=== PATIENT | female | born 1980 | race Hispanic/Latino ===

== ENCOUNTER 2016-12-10 18:21 | Emergency (ER) | payer SELFPAY ==
[2016-12-10 18:27] VITALS: BMI 17.3
--- NOTE | 2016-12-10 19:22 | C.PDOC ---
History Of Present Illness 36 yr old female presents to the ER stating she has been drinking too much alcohol and is requesting detox. Patient was seen by Crisis team memeber and was explained there are no beds available at the moment and was provided with information too be pre-screened. However, patient states she is feeling very depressed. Denies chest pain, SOB, nausea, vomiting, abdominal pain, SI or HI. Time Seen by Provider: 12/10/16 19:21 Chief Complaint (Nursing): Substance Abuse History Per: Patient History/Exam Limitations: no limitations Onset/Duration Of Symptoms: Persistent Current Symptoms Are (Timing): Still Present Suicide/Self Injury Attempted (Context): None Modifying Factor(s): Alcohol Severity: Mild Pain Scale Rating Of: 1 Associated Symptoms: Anger, Depression Involuntary Hold By: None Recent travel outside of the [place]: No Additional History Per: Past Medical History Reviewed: Historical Data, Nursing Documentation, Vital Signs Vital Signs: Last Vital Signs Temp 98.7 F 12/10/16 20:13 Pulse 105 H 12/10/16 20:13 Resp 20 12/10/16 20:13 BP 128/83 12/10/16 20:13 Pulse Ox 97 12/10/16 20:18 Surgical History: Appendectomy Family History: States: No Known Family Hx - Social History Hx Alcohol Use: Yes Hx Substance Use: No - Immunization History Hx Tetanus Toxoid Vaccination: No Hx Influenza Vaccination: No Hx Pneumococcal Vaccination: No Review Of Systems Constitutional: Negative for: Fever, Chills ENT: Negative for: Throat Pain Cardiovascular: Negative for: Chest Pain Respiratory: Negative for: Shortness of Breath Gastrointestinal: Negative for: Nausea, Vomiting, Abdominal Pain Genitourinary: Negative for: Dysuria Musculoskeletal: Negative for: Back Pain Skin: Negative for: Rash Neurological: Negative for: Weakness Psych: Positive for: Depression. Negative for: Suicidal ideation Physical Exam - Physical Exam Appears: Non-toxic, No Acute Distress Skin: Warm, Dry Head: Normacephalic Eye(s): bilateral: Normal Inspection Oral Mucosa: Moist Neck: Supple Chest: Symmetrical, No Tenderness Cardiovascular: Rhythm Regular Respiratory: No Rales, No Rhonchi, No Wheezing Gastrointestinal/Abdominal: Soft, No Distention Back: No CVA Tenderness Extremity: No Tenderness, No Swelling Extremity: Bilateral: Atraumatic Neurological/Psych: Oriented x3, Normal Speech, Normal Cognition Gait: Steady ED Course And Treatment - Laboratory Results Result Diagrams: 12/10/16 20:01 12/10/16 20:01 O2 Sat by Pulse Oximetry: 97 (RA ) Pulse Ox Interpretation: Normal Progress Note: pt was given numbers to call to be pre-screened. Reevaluation Time: 20:38 Reassessment Condition: Improved Medical Decision Making Medical Decision Making: PLAN: * Alcohol Serum * Drug Screen * CBC * CMP * HCG * Urinalysis Disposition Counseled Patient/Family Regarding: Studies Performed, Diagnosis, Need For Followup - Disposition Referrals: Delta Pickard JD, MD [Medical Doctor] - Disposition: HOME/ ROUTINE Disposition Time: 19:22 Condition: FAIR Instructions: Abuse of Alcohol (ED), Alcohol Intoxication (DC) Forms: [employer] (Sami) - Clinical Impression Clinical Impression: Alcohol intoxication - Scribe Statement The provider has reviewed the documentation as recorded by the Scribe Yvonne Lundy Provider Attestation: All medical record entries made by the Scribe were at my direction and personally dictated by me. I have reviewed the chart and agree that the record accurately reflects my personal performance of the history, physical exam, medical decision making, and the department course for this patient. I have also personally directed, reviewed, and agree with the discharge instructions and disposition.
[2016-12-10 20:10] LABS: BASO % 0.5 % (0.0-2.0); EOS % 0.3 % (0.0-4.0); HEMATOCRIT 37.7 % (34.0-47.0); LYMPH # 1.7 K/uL (1.0-4.3); MEAN CELL VOLUME 80.9 fL (81.0-99.0); MEAN CORPUSCULAR HEMOGLOBIN 26.8 pg (27.0-31.0); MEAN CORPUSCULAR HGB CONC 33.1 g/dL (33.0-37.0); MONO # 0.3 K/uL (0.0-0.8); MONO % 4.5 % (0.0-10.0); RED CELL DISTRIBUTION WIDTH 20.7 % (11.5-14.5); WHITE BLOOD COUNT 7.3 K/uL (4.8-10.8)
[2016-12-10 20:14] VITALS: BP 128/83; PULSE 105; RESP 20; TEMP 98.7
[2016-12-10 20:15] LABS: CHLORIDE 102 mmol/L (98-107)
[2016-12-10 20:16] LABS: POTASSIUM 3.9 mmol/L (3.6-5.2); SODIUM 144 mmol/L (132-148)
[2016-12-10 20:18] VITALS: O2SAT 97
[2016-12-10 20:18] LABS: ALB/GLOB RATIO 1.5 (1.0-2.1); ALKALINE PHOSPHATASE 63 U/L (38-126); AST/SGOT 40 U/L (14-36); BILIRUBIN,TOTAL 0.7 mg/dL (0.2-1.3); BLOOD UREA NITROGEN 7 mg/dL (7-17); CARBON DIOXIDE 23 mmol/L (22-30); GFR AFRICAN-AMERICAN > 60; TOTAL PROTEIN 7.4 g/dL (6.3-8.3)
[2016-12-10 20:19] LABS: ALCOHOL SERUM 279 mg/dl (0-10); ALT/SGPT 38 U/L (9-52); CALCIUM 9.4 mg/dl (8.6-10.4); GLUCOSE,RANDOM 86 mg/dL (65-105)
[2016-12-10 20:30] LABS: URINE BILIRUBIN NEGATIVE (NEGATIVE); URINE BLOOD NEGATIVE (NEGATIVE); URINE COLOR Colorless (YELLOW); URINE GLUCOSE (UA) NORMAL (Normal); URINE KETONE NEGATIVE (NEGATIVE); URINE LEUKOCYTE ESTERASE NEG Leu/uL (Negative); URINE PROTEIN NEGATIVE (NEGATIVE); URINE UROBILINOGEN NORMAL mg/dL (0.2-1.0)
== END 2016-12-10 20:48 | disposition home or self-care (01) ==
LOC: C.ER 18:21
DX: F10.120 Alcohol abuse with intoxication, uncomplicated (principal); Y90.8 Blood alcohol level of 240 mg/100 ml or more
CPT/HCPCS: 80053; 81001; 84703; 85025; 99284; G0480

== ENCOUNTER 2017-01-12 18:42 | Emergency (ER) | payer SELFPAY ==
[2017-01-12 18:42] VITALS: BMI 17.3
[2017-01-12 18:58] VITALS: BP 104/73; PULSE 105; RESP 18; TEMP 98.2; O2SAT 100
--- NOTE | 2017-01-12 19:44 | C.PDOC ---
History Of Present Illness 36 yr old female with history of chronic neck pain for the past 10 years, presents to the ER today with complaints of moderate neck pain for the past 2 days. Patient reports of old cervical spine injury 10 years ago and states the pain is usually manageable. Patient states the pain is made worse with movement and experiencing a headache with neck movements. Patient denies recent trauma, fever, chills, vision changes, nausea, vomiting, weakness or numbness. Time Seen by Provider: 01/12/17 19:20 Chief Complaint (Nursing): Back Pain History Per: Patient History/Exam Limitations: no limitations Onset/Duration Of Symptoms: Days Severity: Moderate Previous Symptoms: Neck Pain, Chronic Pain, Prior Injury Associated Symptoms: None Exacerbating Factor(s): Movement Past Medical History Reviewed: Historical Data, Nursing Documentation, Vital Signs Vital Signs: Last Vital Signs Temp 98.2 F 01/12/17 18:54 Pulse 105 H 01/12/17 18:54 Resp 18 01/12/17 18:54 BP 104/73 01/12/17 18:54 Pulse Ox 100 01/12/17 21:55 - Medical History PMH: Chronic Pain (neck) Surgical History: Appendectomy Family History: States: No Known Family Hx - Social History Hx Alcohol Use: Yes Hx Substance Use: No - Immunization History Hx Tetanus Toxoid Vaccination: No Hx Influenza Vaccination: No Hx Pneumococcal Vaccination: No Review Of Systems Constitutional: Negative for: Fever Eyes: Negative for: Vision Change Gastrointestinal: Negative for: Nausea, Vomiting Musculoskeletal: Positive for: Neck Pain Neurological: Negative for: Weakness, Numbness Physical Exam - Physical Exam Appears: Non-toxic, No Acute Distress Skin: Warm, Dry Head: Atraumatic, Normacephalic Eye(s): bilateral: Normal Inspection, PERRL, EOMI Oral Mucosa: Moist Neck: No Midline Cervical Tenderness, Paracervical Tenderness (Bilateral ), Other ((+) Lateral movement of neck causes pain.) Extremity: Normal ROM, No Swelling Extremity: Bilateral: Atraumatic Neurological/Psych: Oriented x3, Normal Speech, Normal Motor, Normal Sensation Gait: Steady ED Course And Treatment O2 Sat by Pulse Oximetry: 100 (RA) Pulse Ox Interpretation: Normal Medical Decision Making Medical Decision Making: PLAN: * Flexeril PO * Toradol IM Pt relative at bedside requesting an MRI in ED today. Pt was informed that no MRI could be done in ER today. Pt is neuro intact and was advised to follwo up with Dr Pickard for evaluation and referral for MRI as needed. Pt will be d/c on pain meds and to follow up with PMD. Return precautions were explained and understood by pt.Pt is fully ambulatory at discharge. 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 - Scribe Statement The provider has reviewed the documentation as recorded by the Scribmaryellen Lundy All medical record entries made by the Stanislavibmaryellen were at my direction and personally dictated by me. I have reviewed the chart and agree that the record accurately reflects my personal performance of the history, physical exam, medical decision making, and the department course for this patient. I have also personally directed, reviewed, and agree with the discharge instructions and disposition.
== END 2017-01-12 20:14 | disposition home or self-care (01) ==
LOC: C.ER 18:42
DX: M54.2 Cervicalgia (principal)
CPT/HCPCS: 96372; 99283; J1885

== ENCOUNTER 2017-07-15 17:53 | Emergency (ER) | payer BC ==
[2017-07-15 17:54] VITALS: BMI 17.3
[2017-07-15 18:03] VITALS: BP 129/87; PULSE 96; RESP 16; TEMP 97.9; O2SAT 99
--- NOTE | 2017-07-15 18:22 | C.PDOC ---
History Of Present Illness 37 year old female presents to the ED with requesting alcohol detox. 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 Patient states she has been drinking because she is increasingly anxious. She denies suicidal/homicidal ideation and has no other complaints at this time. Time Seen by Provider: 07/15/17 18:08 Chief Complaint (Nursing): Substance Abuse History Per: Patient History/Exam Limitations: no limitations Onset/Duration Of Symptoms: Hrs Current Symptoms Are (Timing): Still Present Suicide/Self Injury Attempted (Context): None Modifying Factor(s): Alcohol Associated Symptoms: denies: Suicidal Thoughts, Suicidal Plan Involuntary Hold By: None Recent travel outside of the [place]: No Additional History Per: Patient Past Medical History Reviewed: Historical Data, Nursing Documentation, Vital Signs Vital Signs: Last Vital Signs Temp 97.9 F 07/15/17 17:59 Pulse 96 H 07/15/17 17:59 Resp 16 07/15/17 17:59 BP 129/87 07/15/17 17:59 Pulse Ox 99 07/15/17 23:34 - Medical History PMH: Chronic Pain (neck) Surgical History: Appendectomy - Social History Hx Alcohol Use: Yes Hx Substance Use: No - Immunization History Hx Tetanus Toxoid Vaccination: No Hx Influenza Vaccination: No Hx Pneumococcal Vaccination: No Review Of Systems Psych: Positive for: Other (EtOH intoxication ). Negative for: Suicidal ideation Physical Exam - Physical Exam Appears: Non-toxic, No Acute Distress Skin: Normal Color, Warm, Dry Head: Atraumatic, Normacephalic Eye(s): bilateral: Normal Inspection Oral Mucosa: Moist Neck: Supple Chest: Symmetrical, No Deformity, No Tenderness Cardiovascular: Rhythm Regular, No Murmur Respiratory: Normal Breath Sounds, No Rales, No Rhonchi, No Wheezing Extremity: Normal ROM, Capillary Refill (less than 2 seconds ) Neurological/Psych: Oriented x3, Other (flat affect ) Other Neurological Findings: No Other (tremors ) ED Course And Treatment O2 Sat by Pulse Oximetry: 99 (on RA ) Pulse Ox Interpretation: Normal Progress Note: Librium PO administered. Case discussed with fruit harvest worker. Patient is notified about the unavailabulity of detox beds at this time and is placed on a waiting list. Disposition Counseled Patient/Family Regarding: Diagnosis, Need For Followup, Rx Given - Disposition Disposition: HOME/ ROUTINE Disposition Time: 18:30 Condition: STABLE Additional Instructions: USE MEDICATIONS DIRECTED RETURN TO ER IF YOU HAVE ANY CONCERNING SYMPTOMS Prescriptions: chlordiazePOXIDE [Librium] 50 mg PO UPON ADM #20 cap Instructions: Alcohol Abuse and Alcoholism (DC) Forms: [employer] (Qatari) Print Language: TURKISH - Clinical Impression Clinical Impression: Alcohol dependence - Scribe Statement The provider has reviewed the documentation as recorded by the Scribe (Marsha Duong) Provider Attestation: All medical record entries made by the Scribe were at my direction and personally dictated by me. I have reviewed the chart and agree that the record accurately reflects my personal performance of the history, physical exam, medical decision making, and the department course for this patient. I have also personally directed, reviewed, and agree with the discharge instructions and disposition.
== END 2017-07-15 18:41 | disposition home or self-care (01) ==
LOC: C.ER 17:53
DX: F10.20 Alcohol dependence, uncomplicated (principal); Y90.9 Presence of alcohol in blood, level not specified

== ENCOUNTER 2018-08-09 16:17 | Emergency (ER) | payer SELFPAY ==
[2018-08-09 16:18] VITALS: BMI 17.3
[2018-08-09 17:29] VITALS: BP 121/71; PULSE 108; TEMP 98.1; O2SAT 97
--- NOTE | 2018-08-09 17:40 | C.PDOC ---
History Of Present Illness 38 y/o female pt presents to the ER requesting detox for alcohol. Pt reports she consumes 5 beers a day and currently has not been eating for 5-6 days. Pt's last detox was last month. Pt has no other complaints or associated sx at this time. Time Seen by Provider: 08/09/18 17:07 Chief Complaint (Nursing): Substance Abuse History Per: Patient History/Exam Limitations: no limitations Onset/Duration Of Symptoms: Days (x6) Current Symptoms Are (Timing): Still Present Suicide/Self Injury Attempted (Context): None Modifying Factor(s): Alcohol Past Medical History Reviewed: Historical Data, Nursing Documentation, Vital Signs Vital Signs: Last Vital Signs Temp 98.1 F 08/09/18 16:33 Pulse 108 H 08/09/18 16:33 Resp 18 08/09/18 16:33 BP 121/71 08/09/18 16:33 Pulse Ox 97 08/09/18 16:33 - Medical History PMH: Chronic Pain (neck) Surgical History: Appendectomy Family History: States: No Known Family Hx - Social History Hx Alcohol Use: Yes Hx Substance Use: No - Immunization History Hx Tetanus Toxoid Vaccination: No Hx Influenza Vaccination: No Hx Pneumococcal Vaccination: No Review Of Systems Except As Marked, All Systems Reviewed And Found Negative. Constitutional: Positive for: Other (request alcohol detox ) Gastrointestinal: Positive for: Other (decrease in appetite ) Physical Exam - Physical Exam Appears: Non-toxic, No Acute Distress, Other (thin, [place]-appearing woman; calm, co-operative ) Skin: Warm, Dry Head: Normacephalic Eye(s): bilateral: Normal Inspection, PERRL, EOMI Oral Mucosa: Moist, Other (alcohol on breath ) Throat: Normal Neck: Normal ROM, Supple Chest: Symmetrical Cardiovascular: Rhythm Regular Respiratory: Normal Breath Sounds Gastrointestinal/Abdominal: Soft, No Tenderness Back: No CVA Tenderness Neurological/Psych: Oriented x3, Normal Speech, Normal Cognition ED Course And Treatment - Laboratory Results Result Diagrams: 08/09/18 17:45 08/09/18 17:45 Lab Interpretation: Abnormal (etoh 347, ASA/tylenol neg) Urine POC: Negative O2 Sat by Pulse Oximetry: 97 (RA) Pulse Ox Interpretation: Normal Reevaluation Time: 19:02 Reassessment Condition: Improved Medical Decision Making Medical Decision Making: Plans: -- chem labs -- blood work 1810: pt noted eloped Crisis evaluators notified Disposition Doctor Will See Patient In The: Office Counseled Patient/Family Regarding: Studies Performed, Diagnosis - Disposition Disposition: ELOPEMENT - ER ONLY Disposition Time: 19:00 Condition: GOOD Forms: [facility] (Colombian) - Clinical Impression Clinical Impression: Alcohol dependence - Scribe Statement The provider has reviewed the documentation as recorded by the Stanislavibmaryellen Gannon Do Provider Attestation: All medical record entries made by the Maryjane were at my direction and personally dictated by me. I have reviewed the chart and agree that the record accurately reflects my personal performance of the history, physical exam, medical decision making, and the department course for this patient. I have also personally directed, reviewed, and agree with the discharge instructions and disposition.
[2018-08-09 17:50] LABS: BASO # 0.1 K/uL (0.0-0.2); BASO % 0.8 % (0.0-2.0); EOS % 0.2 % (0.0-4.0); HEMOGLOBIN 12.6 g/dL (11.0-16.0); LYMPH # 1.9 K/uL (1.0-4.3); LYMPH % 24.7 % (20.0-40.0); MEAN CELL VOLUME 85.1 fL (81.0-99.0); MEAN PLATELET VOLUME 7.1 fL (7.2-11.7); MONO # 0.3 K/uL (0.0-0.8); MONO % 3.4 % (0.0-10.0); NEUT # 5.6 K/uL (1.8-7.0); NEUT % 70.9 % (50.0-75.0); RBC 4.49 Mil/uL (3.80-5.20); RED CELL DISTRIBUTION WIDTH 23.7 % (11.5-14.5); WHITE BLOOD COUNT 7.9 K/uL (4.8-10.8)
[2018-08-09 17:51] LABS: SQUAMOUS EPITHIAL 2 /hpf (0-5); URINE BACTERIA RARE (<OCC); URINE BILIRUBIN NEGATIVE (NEGATIVE); URINE CLARITY Clear (Clear); URINE COLOR Yellow (YELLOW); URINE GLUCOSE (UA) NORMAL (Normal); URINE LEUKOCYTE ESTERASE NEG Leu/uL (Negative); URINE PROTEIN NEGATIVE (NEGATIVE); URINE UROBILINOGEN NORMAL mg/dL (0.2-1.0)
[2018-08-09 17:52] LABS: HCG,QUALITATIVE URINE NEGATIVE (NEGATIVE)
[2018-08-09 17:53] LABS: URINE BLOOD 1+ (NEGATIVE)
[2018-08-09 18:00] LABS: ACETAMINOPHEN < 10.0 ug/mL (10.0-30.0); SALICYLATE < 1.0 mg/dL 1
[2018-08-09 18:02] LABS: ALB/GLOB RATIO 1.8 (1.0-2.1); ALBUMIN 4.8 g/dL (3.5-5.0); ALT/SGPT 40 U/L (9-52); AST/SGOT 54 U/L (14-36); BLOOD UREA NITROGEN 7 mg/dL (7-17); CALCIUM 9.6 mg/dl (8.6-10.4); GFR NON-AFRICAN AMERICAN > 60
[2018-08-09 18:08] LABS: BARBITURATES, UR NEGATIVE (NEGATIVE); BENZODIAZEPINES, UR NEGATIVE (NEGATIVE); OPIATES, UR NEGATIVE (NEGATIVE); PHENCYCLIDINE, UR NEGATIVE (NEGATIVE)
[2018-08-09 18:59] VITALS: RESP 20
== END 2018-08-09 19:03 | disposition left against medical advice (07) ==
LOC: C.ER 16:17
DX: F10.20 Alcohol dependence, uncomplicated (principal); Y90.8 Blood alcohol level of 240 mg/100 ml or more
CPT/HCPCS: 80053; 81001; 83735; 84100; 84703; 85025; 99283; G0480

== ENCOUNTER 2018-08-11 09:22 | Inpatient (IN) | payer MEDICAID, OTHER ==
[2018-08-11 09:22] VITALS: BMI 17.3
[2018-08-11 10:38] LABS: BASO % 0.7 % (0.0-2.0); EOS % 0.9 % (0.0-4.0); HEMOGLOBIN 12.6 g/dL (11.0-16.0); LYMPH # 1.1 K/uL (1.0-4.3); LYMPH % 20.8 % (20.0-40.0); MEAN CELL VOLUME 86.5 fL (81.0-99.0); MEAN CORPUSCULAR HEMOGLOBIN 28.8 pg (27.0-31.0); MEAN CORPUSCULAR HGB CONC 33.3 g/dL (33.0-37.0); MEAN PLATELET VOLUME 7.5 fL (7.2-11.7); MONO # 0.3 K/uL (0.0-0.8); MONO % 5.2 % (0.0-10.0); NEUT # 3.9 K/uL (1.8-7.0); NEUT % 72.4 % (50.0-75.0); NRBC % 0.1 % (0.0-2.0); RBC 4.36 Mil/uL (3.80-5.20); RED CELL DISTRIBUTION WIDTH 24.5 % (11.5-14.5); WHITE BLOOD COUNT 5.4 K/uL (4.8-10.8)
--- NOTE | 2018-08-11 11:24 | C.PDOC ---
History Of Present Illness 38 y/o female presents to ED requesting detox from alcohol. Patient denies any chest pain, fever, or vomiting. Denies suicidal or homicidal ideation. Time Seen by Provider: 08/11/18 09:36 Chief Complaint (Nursing): Substance Abuse History Per: Patient History/Exam Limitations: no limitations Onset/Duration Of Symptoms: Days Current Symptoms Are (Timing): Still Present Past Medical History Reviewed: Historical Data, Nursing Documentation, Vital Signs Vital Signs: Last Vital Signs Temp 98 F 08/11/18 09:27 Pulse 91 H 08/11/18 09:27 Resp 20 08/11/18 09:27 BP 93/70 L 08/11/18 09:27 Pulse Ox 98 08/11/18 09:27 - Medical History PMH: Chronic Pain (neck) Surgical History: Appendectomy Family History: States: No Known Family Hx - Social History Hx Tobacco Use: No Hx Alcohol Use: Yes Hx Substance Use: No - Immunization History Hx Tetanus Toxoid Vaccination: No Hx Influenza Vaccination: No Hx Pneumococcal Vaccination: No Review Of Systems Except As Marked, All Systems Reviewed And Found Negative. Constitutional: Negative for: Fever Cardiovascular: Negative for: Chest Pain Respiratory: Negative for: Cough, Shortness of Breath Gastrointestinal: Negative for: Nausea, Vomiting, Abdominal Pain Psych: Positive for: Other (alcohol abuse) Physical Exam - Physical Exam Appears: Non-toxic, No Acute Distress Skin: Warm, Dry Head: Atraumatic, Normacephalic Eye(s): bilateral: Normal Inspection Oral Mucosa: Moist Neck: Supple Chest: Symmetrical Cardiovascular: Rhythm Regular, No Murmur Respiratory: Normal Breath Sounds, No Rales, No Rhonchi, No Wheezing Gastrointestinal/Abdominal: Soft, No Tenderness Extremity: Bilateral: Atraumatic, Normal ROM Neurological/Psych: Oriented x3, Normal Speech, Normal Cognition ED Course And Treatment - Laboratory Results Result Diagrams: 08/11/18 10:33 08/11/18 10:33 O2 Sat by Pulse Oximetry: 98 (RA) Pulse Ox Interpretation: Normal Medical Decision Making Medical Decision Making: Plan: --Labs --UA Update: Patient is medically cleared for psych admission. 14:52 Patient is still waiting for bed availability. Was not accepted for admission for this reason. 16:40 Patient is accepted to detox. Disposition Discussed With : Rodolfo Archer Counseled Patient/Family Regarding: Diagnosis - Disposition Disposition: HOSPITALIZED Disposition Time: 16:33 Condition: STABLE Forms: [facility] (Kenyan) - Clinical Impression Clinical Impression: Alcohol dependence - Scribe Statement The provider has reviewed the documentation as recorded by the Stanislavibmaryellen Shannon Provider Attestation: All medical record entries made by the Stanislavibmaryellen were at my direction and per sonally dictated by me. I have reviewed the chart and agree that the record accurately reflects my personal performance of the history, physical exam, medical decision making, and the department course for this patient. I have also personally directed, reviewed, and agree with the discharge instructions and disposition.
[2018-08-11 11:53] LABS: ALB/GLOB RATIO 1.7 (1.0-2.1); ALBUMIN 4.9 g/dL (3.5-5.0); ALT/SGPT 72 U/L (9-52); AST/SGOT 106 U/L (14-36); BLOOD UREA NITROGEN 10 mg/dL (7-17); GFR NON-AFRICAN AMERICAN > 60
[2018-08-11 12:07] LABS: HCG,QUALITATIVE URINE NEGATIVE (NEGATIVE)
[2018-08-11 12:12] LABS: SQUAMOUS EPITHIAL 1 /hpf (0-5)
[2018-08-11 12:19] LABS: URINE BILIRUBIN NEGATIVE (NEGATIVE); URINE CLARITY CLOUDY (Clear); URINE COLOR RED (YELLOW); URINE GLUCOSE (UA) NEGATIVE (Normal)
[2018-08-11 12:20] LABS: BARBITURATES, UR NEGATIVE (NEGATIVE); BENZODIAZEPINES, UR NEGATIVE (NEGATIVE); OPIATES, UR NEGATIVE (NEGATIVE); PHENCYCLIDINE, UR NEGATIVE (NEGATIVE); URINE BLOOD 3+ (NEGATIVE); URINE LEUKOCYTE ESTERASE NEGATIVE Leu/uL (Negative); URINE PROTEIN 2+ mg/dL (NEGATIVE); URINE UROBILINOGEN 0.2 mg/dL (0.2-1.0)
--- NOTE | 2018-08-11 16:53 | PCM.BM ---
<Dash Hernandez - Last Filed: 08/11/18 16:51> Treatment Plan Problems - Problems identified on initial assessmt knowledge deficit: alcohol use Date Initiated: 08/11/18 Time Initiated: 16:52 Assessment reference: NA Status: Active anxiety related to substance use/alcohol Date Initiated: 08/11/18 Time Initiated: 16:53 Assessment reference: NA Status: Active denial Date Initiated: 08/11/18 Time Initiated: 16:53 Assessment reference: NA Status: Active Treatment assets and liabiliti Patient Assests: adapts well, cooperative, cognitively intact Patient Liabilities: substance abuse - Milieu Protocol Maintain good personal hygiene: daily Encourage regular showers, daily Remind patient to perform daily oral care, daily Assist patient to perform ADL's Conduct patient checks and document Observation sheet: Q15 minutes Maintain personal safety: every shift Educate patient to report safety concerns to staff, every shift Monitor environment for contraband/sharps Medication safety: Monitor for expected outcome, potential side effects: every shift, Assess barriers to learning: every shift, Assess readiness for medication education: every shift <Arlet Zhu - Last Filed: 08/12/18 22:54> - Diagnosis (1) Alcohol dependence Status: Acute Interventions: 08/12/18 22:54 * Assess 7x/week regarding severity of withdrawal * Educate regarding risks, benefits, side effects and alternatives of medications * Use Motivational Interviewing for abstinence * Use CBT for relapse prevention * Medication management for withdrawal symptoms * Encourage medication assisted treatment *
[2018-08-11] MEDS ORDERED: Aluminum Hydroxide/Magnesium Hydroxide Susp (30 mL) PO PRN (17:06)
[2018-08-11] MEDS ORDERED: Magnesium Hydroxide Susp 30 ml UD PO PRN (17:06)
[2018-08-12] MEDS: Multiple Vitamins Tab PO SCH (10:05)
--- NOTE | 2018-08-12 12:46 | PCM.PSYCH ---
Initial Psychiatric Evaluation - Initial Psychiatric Evaluation Type of Admission: Voluntary Legal Status: Capacity Chief Complaint (in patient's own words): "I feel sick, tired" History of Present Illness and Precipitating Events: Patient is seen, chart reviewed and plan discussed with team. Patient is a 38 year old woman, currently with an eleven year old daughter. She lives at home with her daughter and . She is unemployed and not on disability. Patient is presenting to detox for alcohol use. She drinks 3 beers and 3 shots of vodka per day. She has been drinking for 6 years, her longest sobriety was 1.5 years. She has been to detox 4 times, but does not recall where. Currently she is experiencing withdrawal symptoms of tremor and fatigue. Patient denied other recreational drug use. She is currently a smoker, 1PPD for the last 20 years. She denied any symptoms when not using drugs. Patient denied suicidal or homicidal ideations. She stated she would like to go back to [facility], to receive injections in the hospital there. Psych Hx Denies Fam Psych HX Denies Medications Denies PMHx Denies Social hx Smoking and alcohol use Trauma Denies Current Medications: Active Medications Generic Name Dose Route Start Last Admin Trade Name Freq PRN Reason Stop Dose Admin Al Hydrox/Mg Hydrox/Simethicone 30 ml 08/11/18 17:06 Maalox 30 Ml PO TID PRN Indigestion / Heartburn Chlordiazepoxide 25 mg 08/12/18 10:00 08/12/18 10:05 Librium PO 08/17/18 09:59 25 mg Q6H JENNI Administration Taper Clonidine HCl 0.1 mg 08/11/18 17:05 Catapres PO Q4H PRN Symptoms of alcohol withdrawl Dicyclomine HCl 10 mg 08/11/18 17:06 Bentyl PO Q6 PRN Muscle spasm Folic Acid 1 mg 08/12/18 10:00 08/12/18 10:06 Folic Acid PO 1 mg DAILY JENNI Administration Gabapentin 400 mg 08/11/18 18:00 08/12/18 10:05 Neurontin PO 400 mg TID JENNI Administration Hydroxyzine HCl 50 mg 08/11/18 17:10 Atarax PO Q6 PRN Anxiety Ibuprofen 600 mg 08/11/18 17:06 Motrin Tab PO Q6 PRN Pain, moderate (4-7) Loperamide HCl 2 mg 04/14/19 17:06 Imodium PO Q8 PRN Diarrhea Magnesium Hydroxide 30 ml 08/11/18 17:06 Milk Of Magnesia PO BID PRN Constipation Multivitamins 1 tab 08/12/18 10:00 08/12/18 10:05 Hexavitamin PO 1 tab DAILY JENNI Administration Nicotine 1 patch 08/12/18 10:00 08/12/18 10:08 Nicoderm Cq TD Not Given DAILY JENNI Ondansetron HCl 4 mg 08/11/18 17:06 Zofran Tab PO Q8 PRN Nausea/Vomiting Pneumococcal Polyvalent Vaccine 0.5 ml 08/14/18 10:00 Pneumovax 23 Vaccine IM 08/14/18 10:01 .ONCE ONE Thiamine HCl 100 mg 08/12/18 10:00 08/12/18 10:05 Vitamin B1 Tab PO 100 mg DAILY JENNI Administration Trazodone HCl 50 mg 08/11/18 17:05 Desyrel PO HS PRN Insomnia Past Psychiatric History - Past Psychiatric History Pertinent Medical Hx (Current Medical&Sleep Prob, Allergies): Allergies Allergy/AdvReac Type Severity Reaction Status Date / Time No Known Allergies Allergy Verified 08/11/18 09:28 chlordiazePOXIDE [Librium] 50 mg PO UPON ADM #20 cap 07/15/17 Review of Systems - Psychiatric Psychiatric: Abnormal Sleep Pattern, Anhedonia, Anxiety, Change in Appetite, Depression, Difficulty Concentrating. absent: Hallucinations, Homicidal Ideation, Paranoia, Suicidal Ideation Mental Status Examination - Personal Presentation Personal Presentation: Looks older than stated age - Affect Affect: Constricted - Motor Activity Motor Activity: Calm - Reliability in Providing Information Reliability in Providing Information: Fair - Speech Speech: Organized - Mood Mood: Depressed, Anxious - Formal Thought Process Formal Thought Process: No Impairment - Cognitive Functions Orientation: Person, Place, Situation, Time Sensorium: Alert Attention/Concentration: Easily distracted Abstract Thinking: [place] Estimate of Intelligence: Average Judgement: Intact, as evidence by: Insight regarding need for hospitalization Memory: Recent intact, as evidence by: Ability to recall events of the day, Remote intact, as evidenced by: Abilit to recall sig. life events - Risk Risk: Withdrawal, Diminished functioning - Strength & Assets Inventory Strength & Assets Inventory: Family support, Cooperative - Limitations Limitations: Other DSM 5 DX - DSM 5 DSM 5 Diagnosis: Alcohol withdrawal Alcohol use d/o - severe Major depressive d/o - moderate - Recommended/Plan of Treatment Treatment Recommendations and Plan of Treatment: Taper with librium Gabapentin for augmentation if needed As needed medications All risks, benefits and alternatives of the meds discussed, and the pt agreed and understood. Attend groups and activities Supportive therapy and psychoeducation [place] for abstinence CBT for relapse prevention Encourage MAT Refer to rehab or IOP, and self-help groups Teach healthy lifestyle methods, i.e. diet, exercise, meditation Smoking cessation with [place] Nicotine patch if needed 34 min Projected ELOS: 4-5 days Prognosis: good w treatment - Smoking Cessation Smoking Cessation Initiated: Yes
[2018-08-13] MEDS: Multiple Vitamins Tab PO SCH (10:09)
[2018-08-14] MEDS ORDERED: Pneumococcal 23-Valent Vaccine IM ONE (10:00)
[2018-08-14] MEDS: Multiple Vitamins Tab PO SCH (10:47)
--- NOTE | 2018-08-14 15:52 | PCM.PYCHPN ---
Psychiatric Progress Note - Psychiatric Progress Note Patient seen today, length of contact: 16 min Patient Chief Complaint: "I am not well" Problems Identified/Issues Discussed: The pt is seen, chart reviewed, case discussed with staff. The pt is compliant with medications and reports no side-effects. Symptoms are improving but needs more time to stabilize. Pt attends groups and activities. Support given, psycho-education provided. After care discussed. Medication Change: Yes (detox changes daily) Medical Record Reviewed: Yes Mental Status Examination - Cognitive Function Orientation: Person, Place, Situation, Time Memory: Intact Attention: Poor Concentration: Poor Association: WNL Fund of Knowledge: WNL - Mood Mood: Depressed, Anxious - Affect Affect: Constricted - Speech Speech: Appropriate - Formal Thought Process Formal Thought Process: No Impairment - Suicidal Ideation Suicidal Ideation: No - Homicidal Ideation Homicidal Ideation: No Goal/Treatment Plan - Goal/Treatment Plan Need for Continued Stay: Discharge may exacerbated symptoms, Severe functional impairment Progress Toward Problem(s) and Goals/Treatment Plan: Taper with librium Gabapentin for augmentation if needed As needed medications All risks, benefits and alternatives of the meds discussed, and the pt agreed and understood. Attend groups and activities Supportive therapy and psychoeducation MN for abstinence CBT for relapse prevention Encourage MAT Refer to rehab or IOP, and self-help groups Teach healthy lifestyle methods, i.e. diet, exercise, meditation Smoking cessation with MN Nicotine patch if needed Estimated Date of D/C: 08/15/18
[2018-08-15 06:11] VITALS: RESP 19; O2SAT 100
--- NOTE | 2018-08-15 08:53 | PCM.PYCHDC ---
Mental Status Examination - Mental Status Examination Orientation: Person, Place, Situation, Time Memory: Intact Mood: Depressed Affect: Constricted Speech: Appropriate Attention: WNL Concentration: WNL Association: WNL Fund of Knowledge: WNL Formal Thought Process: No Impairment Suicidal Ideation: No Current Homicidal Ideation?: No Discharge Summary - Discharge Note Reason for Hospitalization: Alcohol detox Consultations:: List each consultation separately and include: 1. Reason for request. 2. Findings. 3. Follow-up Summary of Hospital Course include:: 1. Description of specific treatment plan utilized for patients during their course of treatmen. 2. Summarize the time- course for resolution of acute symptoms and/or regressed behaviors. 3. Describe issues identified and worked on during hospitalization. 4. Describe medication utilized. 5. Describe medical problems identified and treated. 6. Reassessment of suicide risk Summary of Hospital Course: On admission: Patient is seen, chart reviewed and plan discussed with team. Patient is a 38 year old woman, currently with an eleven year old daughter. She lives at home with her daughter and . She is unemployed and not on disability. Patient is presenting to detox for alcohol use. She drinks 3 beers and 3 shots of vodka per day. She has been drinking for 6 years, her longest sobriety was 1.5 years. She has been to detox 4 times, but does not recall where. Currently she is experiencing withdrawal symptoms of tremor and fatigue. Patient denied other recreational drug use. She is currently a smoker, 1PPD for the last 20 years. She denied any symptoms when not using drugs. Patient denied suicidal or homicidal ideations. She stated she would like to go back to [place] post detox, to receive injections in the hospital there. Psych Hx Denies Fam Psych HX Denies Medications Denies PMHx Denies Social hx Smoking and alcohol use Trauma Denies The pt was admitted and started on treatment with psychotherapy, support, psychoeducation and medications. [place] and CBT used. The pt attended groups and activities, as well as milieu therapy. All the risks and benefits of medications are discussed and the patient understood and agreed. The pt improved with the treatments provided. After care discussed with the patient. She will go to [facility] in [place]. - Final Diagnosis (DSM 5) Condition upon Discharge: STABLE DSM 5: Alcohol withdrawal Alcohol use d/o - severe Major depressive d/o - moderate Disposition: HOME/ ROUTINE Follow-up Treatment Plan: Continue below medications after discharge. Follow after care plan as discussed. Use relapse prevention skills Return to ER or call 911 if suicidal, homicidal or symptoms relapse. Stay away from stress, alcohol and drugs. See primary doctor regularly and get labs. Prescriptions/Medication Reconciliation: Gabapentin [Neurontin] 400 mg PO BID #60 cap traZODone [Desyrel] 50 mg PO HS PRN #20 tab PRN Reason: Insomnia
--- NOTE | 2018-08-15 08:55 | PCM.PYCHPN ---
Psychiatric Progress Note - Psychiatric Progress Note Patient seen today, length of contact: 17 min Patient Chief Complaint: "I am a little better" Problems Identified/Issues Discussed: The pt is seen, chart reviewed, case discussed with staff. Support and psychoeducation given, CBT and VT used briefly Pt is improving slowly and needs more time, still has ongoing symptoms. No SEs from medications, risks discussed. After care discussed Medication Change: Yes (detox changes daily) Medical Record Reviewed: Yes Mental Status Examination - Cognitive Function Orientation: Person, Place, Situation, Time Memory: Intact Attention: Poor Concentration: Poor Association: WNL Fund of Knowledge: WNL - Mood Mood: Depressed, Anxious - Affect Affect: Constricted - Speech Speech: Appropriate - Formal Thought Process Formal Thought Process: No Impairment - Suicidal Ideation Suicidal Ideation: No - Homicidal Ideation Homicidal Ideation: No Goal/Treatment Plan - Goal/Treatment Plan Need for Continued Stay: Discharge may exacerbated symptoms, Severe functional impairment Progress Toward Problem(s) and Goals/Treatment Plan: Taper with librium Gabapentin for augmentation if needed As needed medications All risks, benefits and alternatives of the meds discussed, and the pt agreed and understood. Attend groups and activities Supportive therapy and psychoeducation [place] for abstinence CBT for relapse prevention Encourage MAT Refer to rehab or IOP, and self-help groups Teach healthy lifestyle methods, i.e. diet, exercise, meditation Smoking cessation with VT Nicotine patch if needed Estimated Date of D/C: 08/15/18
[2018-08-15] MEDS: Multiple Vitamins Tab PO SCH (09:26)
[2018-08-15 09:33] VITALS: BP 93/70; PULSE 100; TEMP 98.2
== END 2018-08-15 11:40 | disposition home or self-care (01) | DRG 751 ==
LOC: C.ER 09:22 → C.7D 16:31
PROC: HZ2ZZZZ Detoxification Services for Substance Abuse Treatment (ICD-10-PCS; principal; 2018-08-11)
PROC: HZ52ZZZ Individual Psychotherapy for Substance Abuse Treatment, Cognitive-Behavioral (ICD-10-PCS; 2018-08-11)
PROC: HZ59ZZZ Individual Psychotherapy for Substance Abuse Treatment, Supportive (ICD-10-PCS; 2018-08-11)
PROC: HZ56ZZZ Individual Psychotherapy for Substance Abuse Treatment, Psychoeducation (ICD-10-PCS; 2018-08-11)
PROC: HZ46ZZZ Group Counseling for Substance Abuse Treatment, Psychoeducation (ICD-10-PCS; 2018-08-11)
PROC: GZHZZZZ Group Psychotherapy (ICD-10-PCS; 2018-08-11)
PROC: GZ58ZZZ Individual Psychotherapy, Cognitive-Behavioral (ICD-10-PCS; 2018-08-11)
PROC: GZ56ZZZ Individual Psychotherapy, Supportive (ICD-10-PCS; 2018-08-11)
PROC: HZ42ZZZ Group Counseling for Substance Abuse Treatment, Cognitive-Behavioral (ICD-10-PCS; 2018-08-11)
DX: F10.230 Alcohol dependence with withdrawal, uncomplicated (principal); F32.1 Major depressive disorder, single episode, moderate; Y90.6 Blood alcohol level of 120-199 mg/100 ml; F17.210 Nicotine dependence, cigarettes, uncomplicated; G47.00 Insomnia, unspecified